=== PATIENT | female | born 1980 | race Caucasian/White ===

== ENCOUNTER 2017-03-21 20:58 | Inpatient (IN) | END 2017-03-25 15:20 | disposition home or self-care (01) | DRG 244 | DX: K57.32 Diverticulitis of large intestine without perforation or abscess without bleeding (principal); D69.6 Thrombocytopenia, unspecified; E44.0 Moderate protein-calorie malnutrition; E11.65 Type 2 diabetes mellitus with hyperglycemia; E83.42 Hypomagnesemia; E83.51 Hypocalcemia; K76.0 Fatty (change of) liver, not elsewhere classified; E66.9 Obesity, unspecified; E78.5 Hyperlipidemia, unspecified; J45.909 Unspecified asthma, uncomplicated; K21.9 Gastro-esophageal reflux disease without esophagitis; R53.1 Weakness; F41.9 Anxiety disorder, unspecified; Z68.29 Body mass index [BMI] 29.0-29.9, adult; D50.9 Iron deficiency anemia, unspecified; I95.1 Orthostatic hypotension; K57.90 Diverticulosis of intestine, part unspecified, without perforation or abscess without bleeding; Z79.84 Long term (current) use of oral hypoglycemic drugs ==

== ENCOUNTER 2017-05-25 23:40 | Emergency (ER) | payer MEDICAID ==
[~2017-05-25] VITALS: Ht 152.4 cm; Wt 72.6 kg
[~2017-05-25 23:40] MED LIST: ACET325T53 PO; CHOL10002 PO; ERGO500014 PO; FERR325T28 PO; GLIP10TA11 PO; LACT1CAP57 PO; LEVO500T2 PO; METF500T6 PO; METR500T4 PO
[2017-05-25] MEDS ORDERED: KETOROLAC TROMETHAMINE 30 MG INJ ONE (23:54)
--- NOTE | 2017-05-26 | NUR ---
[facility] BURRELL AT BEDSIDE FOR MSE.
[2017-05-26] MEDS ORDERED: PANTOPRAZOLE SODIUM 40 MG VIAL ONE (00:10)
--- NOTE | 2017-05-26 00:10 | NUR ---
PT ARRIVES TO ED W/ C/O ABD PAIN X3 DAYS. ALSO REPORTS NAUSEA AND DIARRHEA X5 DAYS.
[2017-05-26] MEDS ORDERED: ONDANSETRON 4 MG/2 ML VIAL IV ONE (00:15)
[2017-05-26] MEDS ORDERED: ONDANSETRON 4 MG/2 ML VIAL ONE (00:15)
[2017-05-26] MEDS ORDERED: PANTOPRAZOLE SODIUM 40 MG VIAL IV ONE (00:15)
[2017-05-26] MEDS ORDERED: KETOROLAC TROMETHAMINE 15 MG INJ IV ONE (00:15)
[2017-05-26] MEDS ORDERED: IV NORMAL SALINE 1000 ML BAG IV ONE (00:15)
--- NOTE | 2017-05-26 00:15 | NUR ---
[facility] AT PT BEDSIDE FOR BLOOD DRAW.
[2017-05-26 00:21] LABS: BASOPHILS % (AUTO) 0.3 % (0.0-2.0); EOSINOPHILS # (AUTO) 0.2 K/uL (0.0-0.7); EOSINOPHILS % (AUTO) 1.3 % (0.0-7.0); HEMATOCRIT 34.7 % (31.2-41.9); HEMOGLOBIN 11.5 g/dL (10.9-14.3); LYMPHOCYTES # (AUTO) 3.2 K/uL (20.0-40.0); LYMPHOCYTES % (AUTO) 26.9 % (20.5-51.5); MEAN CORPUSCULAR HEMOGLOBIN 26.4 uug (24.7-32.8); MEAN CORPUSCULAR HGB CONC 33 g/dL (32.3-35.6); MEAN CORPUSCULAR VOLUME 79.3 fL (75.5-95.3); MONOCYTES # (AUTO) 0.8 K/uL (2.0-10.0); MONOCYTES % (AUTO) 6.5 % (0.0-11.0); NEUTROPHILS # (AUTO) 7.6 K/uL (1.8-8.9); PLATELET COUNT (AUTO) 196 K/uL (179-408); RED BLOOD CELL COUNT(AUTO) 4.37 MIL/uL (3.63-4.92); WHITE BLOOD COUNT (AUTO) 11.7 K/uL (3.8-11.8)
[2017-05-26 00:45] LABS: BILIRUBIN,DIRECT 0.1 mg/dL (0.0-0.2); BILIRUBIN,TOTAL 0.2 mg/dL (0.2-1.0); CREATININE 0.9 mg/dL (0.6-1.3); POTASSIUM 3.6 mmol/L (3.5-5.1); TOTAL PROTEIN, SERUM 7.7 g/dL (6.4-8.2)
--- NOTE | 2017-05-26 00:52 | NUR ---
PT AMBULATED TO AND FROM BATHROOM. DENIES DIZZINESS OR SOB. NO DISTRESS NOTED.
--- NOTE | 2017-05-26 01:01 | NUR ---
PT TAKEN TO CT BY [employer]PERVIS[employer] VIA WHEELCHAIR. NO DISTRESS NOTED.
[2017-05-26 01:03] LABS: *BILIRUBIN,URIN NEGATIVE (NEGATIVE); *BLOOD, URINE NEGATIVE (NEGATIVE); *CLARITY,URINE CLEAR (CLEAR); *COLOR,URINE STRAW (YELLOW); *KETONES,URINE NEGATIVE (NEGATIVE); *PROTEIN,URINE NEGATIVE (NEGATIVE); *UROBILINOGEN,URINE 0.2 E.U./dl (NORMAL); LEUKOCYTE ESTERASE ,URINE NEGATIVE (NEGATIVE); NITRITE, URINE NEGATIVE (NEGATIVE); PH,URINE 6.5 (5.0-8.0); UGLUCOSE NEGATIVE (NEGATIVE)
[2017-05-26 01:09] LABS: BACTERIA,URINE NONE SEEN /HPF (NONE SEEN); RBC,URINE NONE SEEN /HPF (0-3); SQUAMOUS EPITHELIAL CELL,UR FEW /HPF (NONE SEEN); WBC,URINE NONE SEEN /HPF (0-3)
[2017-05-26] MEDS ORDERED: MORPHINE SULFATE 4 MG/1 ML DISP.SYRIN IV ONE (01:45)
[2017-05-26] MEDS ORDERED: MORPHINE SULFATE 4 MG/1 ML DISP.SYRIN ONE (01:45)
--- NOTE | 2017-05-26 02:38 | NUR ---
PT RESTING W/ EYES CLOSED. NO DISTRESS NOTED. FAMILY AT BEDSIDE.
[2017-05-26] MEDS ORDERED: LEVOFLOXACIN 750 MG TABLET ONE (02:59)
[2017-05-26] MEDS ORDERED: METRONIDAZOLE 500 MG TABLET ONE (02:59)
[2017-05-26] MEDS ORDERED: METRONIDAZOLE 500 MG TABLET PO ONE (03:00)
[2017-05-26] MEDS ORDERED: LEVOFLOXACIN 750 MG TABLET PO ONE (03:00)
--- NOTE | 2017-05-26 03:48 | NUR ---
Patient discharged to home in stable conditon. Written and verbal after care instructions given. Patient verbalizes understanding of instructions. IV removed, catheter intact. Pressure applied. No bleeding noted at site. Pt ambulated from ER w/ steady gait, accompanied by family. Pt took all belongings.
[2017-05-26 03:52] VITALS: BP 104/68
== END 2017-05-26 03:52 | disposition home or self-care (01) ==
LOC: ER 23:42
DX: K57.32 Diverticulitis of large intestine without perforation or abscess without bleeding (principal); E11.9 Type 2 diabetes mellitus without complications; K21.9 Gastro-esophageal reflux disease without esophagitis; Z79.84 Long term (current) use of oral hypoglycemic drugs; Z90.49 Acquired absence of other specified parts of digestive tract; Z79.2 Long term (current) use of antibiotics; Z79.899 Other long term (current) drug therapy
CPT/HCPCS: 36415; 83690; 84703; 85025; 93005; A4663; C9113; J2270; J2405; J7030

== ENCOUNTER 2017-08-21 22:26 | Emergency (ER) | payer MEDICAID ==
[~2017-08-21] VITALS: Ht 165.1 cm; Wt 72.6 kg
[2017-08-21] MEDS ORDERED: IV NORMAL SALINE 1000 ML BAG IV ONE (23:45)
[2017-08-21] MEDS ORDERED: ALBUTEROL SULFATE 2.5 MG/3 ML NEBU NEB ONE (23:45)
[2017-08-21] MEDS ORDERED: ALBUTEROL SULFATE 2.5 MG/3 ML NEBU ONE (23:53)
[2017-08-22] MEDS ORDERED: HYDROCODONE/APAP 5-325MG TABLET ONE (00:09)
[2017-08-22 00:10] LABS: BASOPHILS % (AUTO) 0.4 % (0.0-2.0); EOSINOPHILS # (AUTO) 0.4 K/uL (0.0-0.7); HEMATOCRIT 35.8 % (31.2-41.9); LYMPHOCYTES # (AUTO) 3.5 K/uL (20.0-40.0); LYMPHOCYTES % (AUTO) 28.9 % (20.5-51.5); MEAN CORPUSCULAR HEMOGLOBIN 26.7 uug (24.7-32.8); MEAN CORPUSCULAR HGB CONC 34 g/dL (32.3-35.6); MEAN CORPUSCULAR VOLUME 79.4 fL (75.5-95.3); MONOCYTES # (AUTO) 0.7 K/uL (2.0-10.0); MONOCYTES % (AUTO) 5.3 % (0.0-11.0); NEUTROPHILS # (AUTO) 7.6 K/uL (1.8-8.9); NEUTROPHILS % (AUTO) 62.4 % (38.5-71.5); PLATELET COUNT (AUTO) 171 K/uL (179-408); WHITE BLOOD COUNT (AUTO) 12.2 K/uL (3.8-11.8)
[2017-08-22] MEDS ORDERED: HYDROCODONE/APAP 5-325MG TABLET PO ONE (00:15)
[2017-08-22 00:45] LABS: CREATININE 1.1 mg/dL (0.6-1.3); POTASSIUM 3.8 mmol/L (3.5-5.1)
[2017-08-22 00:57] LABS: BILIRUBIN,DIRECT 0.1 mg/dL (0.0-0.2); BILIRUBIN,TOTAL 0.3 mg/dL (0.2-1.0)
[2017-08-22 03:39] VITALS: BP 95/77
== END 2017-08-22 03:40 | disposition home or self-care (01) ==
LOC: ER 22:28
DX: J20.9 Acute bronchitis, unspecified (principal); K21.9 Gastro-esophageal reflux disease without esophagitis; E11.9 Type 2 diabetes mellitus without complications; Z90.49 Acquired absence of other specified parts of digestive tract; Z79.2 Long term (current) use of antibiotics; Z79.84 Long term (current) use of oral hypoglycemic drugs; Z79.899 Other long term (current) drug therapy
CPT/HCPCS: 36415; 70030-TC; 84703; 85025; 85730; 93005; A4663; J7030

== ENCOUNTER 2020-10-13 14:26 | Emergency (ER) | payer MEDICAID ==
[~2020-10-13] VITALS: Ht 152.4 cm; Wt 77.1 kg
[~2020-10-13 14:26] MED LIST changes: +METF-440 PO; -METF500T6 PO; +METR-147 PO; -METR500T4 PO
--- NOTE | 2020-10-13 14:40 | NUR ---
Dr Agarwal at the bedside for MSE.
[2020-10-13] MEDS ORDERED: IV NORMAL SALINE 1000 ML BAG IV ONE (14:45)
[2020-10-13] MEDS ORDERED: MORPHINE SULFATE 2 MG/1 ML DISP.SYRIN IV ONE ×2 (14:45→16:00)
[2020-10-13] MEDS ORDERED: ONDANSETRON 4 MG/2 ML VIAL IV ONE (14:45)
[2020-10-13] MEDS ORDERED: INSU100I19 SQ (14:46)
[2020-10-13] MEDS ORDERED: SIMV-49 PO (14:46)
[2020-10-13] MEDS ORDERED: FENOFIBRATE PO (14:46)
[2020-10-13] MEDS ORDERED: INSU100C SQ (14:46)
[2020-10-13] MEDS ORDERED: MORPHINE SULFATE 4 MG/1 ML DISP.SYRIN ONE ×2 (14:58→16:02)
[2020-10-13] MEDS ORDERED: ONDANSETRON 4 MG/2 ML VIAL ONE (14:58)
[2020-10-13 15:00] LABS: HEMATOCRIT 30.7 % (31.2-41.9); MEAN CORPUSCULAR VOLUME 70.1 fL (75.5-95.3); PLATELET COUNT (AUTO) 223 K/uL (179-408)
[2020-10-13 15:01] LABS: *BILIRUBIN,URIN NEGATIVE (NEGATIVE); *BLOOD, URINE NEGATIVE (NEGATIVE); *CLARITY,URINE CLEAR (CLEAR); *COLOR,URINE LIGHT YELLOW (YELLOW); *KETONES,URINE NEGATIVE (NEGATIVE); *UROBILINOGEN,URINE 0.2 E.U./dl (NORMAL); LEUKOCYTE ESTERASE ,URINE NEGATIVE (NEGATIVE); NITRITE, URINE NEGATIVE (NEGATIVE); UGLUCOSE NEGATIVE (NEGATIVE)
[2020-10-13 15:02] LABS: CREATININE 0.9 mg/dL (0.6-1.3); POTASSIUM 3.5 mmol/L (3.5-5.1)
[2020-10-13 15:04] LABS: *URINE HCG, QUAL NEGATIVE (NEGATIVE)
[2020-10-13 15:08] LABS: BILIRUBIN,DIRECT 0.1 mg/dL (0.0-0.2); BILIRUBIN,TOTAL 0.2 mg/dL (0.2-1.0); TOTAL PROTEIN, SERUM 7.9 g/dL (6.4-8.2)
--- NOTE | 2020-10-13 15:22 | NUR ---
Patient is resting comfortably in bed with eyes closed, NAD noted.
--- NOTE | 2020-10-13 15:33 | NUR ---
Pt out of Er for CT scan.
--- NOTE | 2020-10-13 15:50 | NUR ---
Pt back from De. /S [employer] at the bedside.
[2020-10-13] MEDS ORDERED: HYDR-3980 PO (16:34)
[2020-10-13 16:45] VITALS: BP 110/59
--- NOTE | 2020-10-13 16:45 | NUR ---
IV removed. Catheter intact and site benign. Pressure and 4x4 gauze applied to site. No bleeding noted.
--- NOTE | 2020-10-13 16:46 | NUR ---
Patient discharged to home in stable condition. Written and verbal after care instructions given. Patient verbalizes understanding of instructions. Stressed follow up or return to ER for worsening s/s.
== END 2020-10-13 16:46 | disposition home or self-care (01) ==
LOC: ER 14:27
DX: R10.31 Right lower quadrant pain (principal); K57.30 Diverticulosis of large intestine without perforation or abscess without bleeding; K21.9 Gastro-esophageal reflux disease without esophagitis; J45.909 Unspecified asthma, uncomplicated; E78.5 Hyperlipidemia, unspecified; E11.9 Type 2 diabetes mellitus without complications; Z79.4 Long term (current) use of insulin; E55.9 Vitamin D deficiency, unspecified; E66.9 Obesity, unspecified; Z68.33 Body mass index [BMI] 33.0-33.9, adult
CPT/HCPCS: 36415; 74176; 76856; 80048; 80076; 81003; 83690; 84703; 85025; 96361; 96374; 96375; 96376; 99285; J2270 ×2; J2405; A4663; J7030

== ENCOUNTER 2020-10-22 15:25 | Emergency (ER) | payer MEDICAID ==
[~2020-10-22] VITALS: Ht 157.5 cm; Wt 77.1 kg
[~2020-10-22 15:25] MED LIST changes: -ACET325T53 PO; -CHOL10002 PO; -ERGO500014 PO; +FENOFIBRATE PO; -FERR325T28 PO; -GLIP10TA11 PO; +HYDR-3980 PO; +INSU100C SQ; +INSU100I19 SQ; -LACT1CAP57 PO; -LEVO500T2 PO; -METR-147 PO; +SIMV-49 PO
--- NOTE | 2020-10-22 15:43 | NUR ---
Dr Alexander at the bedside for MSE.
[2020-10-22] MEDS ORDERED: IBUPROFEN 600 MG TABLET PO ONE (16:00)
[2020-10-22] MEDS ORDERED: IBUPROFEN 600 MG TABLET ONE (16:07)
--- NOTE | 2020-10-22 16:22 | NUR ---
COVID swab collected and taken to LAB.
[2020-10-22] MEDS ORDERED: IBUP-1955 PO (17:05)
[2020-10-22 17:18] VITALS: BP 110/62
== END 2020-10-22 17:19 | disposition home or self-care (01) ==
LOC: ER 15:25
DX: J02.9 Acute pharyngitis, unspecified (principal); H92.02 Otalgia, left ear; Z20.822 Contact with and (suspected) exposure to COVID-19; E11.9 Type 2 diabetes mellitus without complications; Z79.4 Long term (current) use of insulin; E78.5 Hyperlipidemia, unspecified; E66.9 Obesity, unspecified; Z68.31 Body mass index [BMI] 31.0-31.9, adult; K21.9 Gastro-esophageal reflux disease without esophagitis; J45.909 Unspecified asthma, uncomplicated
CPT/HCPCS: 86403; 87070; A4663

== ENCOUNTER 2021-01-25 11:50 | Emergency (ER) | payer MEDICAID ==
[~2021-01-25] VITALS: Ht 157.5 cm; Wt 77.1 kg
[~2021-01-25 11:50] MED LIST changes: +IBUP-1955 PO
[2021-01-25] MEDS ORDERED: IBUPROFEN 800 MG TABLET PO ONE (12:15)
[2021-01-25] MEDS ORDERED: IBUPROFEN 800 MG TABLET ONE (12:27)
[2021-01-25 13:14] LABS: MEAN CORPUSCULAR HEMOGLOBIN 22.3 uug (24.7-32.8); MEAN CORPUSCULAR VOLUME 71.3 fL (75.5-95.3); PLATELET COUNT (AUTO) 230 K/uL (179-408)
[2021-01-25 13:16] LABS: CREATININE 1.1 mg/dL (0.6-1.3); POTASSIUM 4.5 mmol/L (3.5-5.1)
[2021-01-25 13:29] LABS: BILIRUBIN,DIRECT 0.1 mg/dL (0.0-0.2); BILIRUBIN,TOTAL 0.2 mg/dL (0.2-1.0); TOTAL PROTEIN, SERUM 7.2 g/dL (6.4-8.2)
[2021-01-25] MEDS ORDERED: HYDR-3972 PO (13:47)
[2021-01-25] MEDS ORDERED: NAPR500T6 PO (13:47)
[2021-01-25 13:56] LABS: EOSINOPHILS % (MANUAL) 2 % (0-8); LYMPHOCYTES % (MANUAL) 41 % (20-40); MONOCYTES % (MANUAL) 3 % (2-10); NEUTROPHILS % (MANUAL) 54 % (42-75)
== END 2021-01-25 13:54 | disposition home or self-care (01) ==
LOC: ER 11:50
DX: S46.001A Unspecified injury of muscle(s) and tendon(s) of the rotator cuff of right shoulder, initial encounter (principal); X58.XXXA Exposure to other specified factors, initial encounter; Y92.89 Other specified places as the place of occurrence of the external cause; E11.9 Type 2 diabetes mellitus without complications; E66.9 Obesity, unspecified; Z68.31 Body mass index [BMI] 31.0-31.9, adult; K21.9 Gastro-esophageal reflux disease without esophagitis; E78.5 Hyperlipidemia, unspecified; Z79.4 Long term (current) use of insulin; R94.31 Abnormal electrocardiogram [ECG] [EKG]; D64.9 Anemia, unspecified; J45.909 Unspecified asthma, uncomplicated; M54.12 Radiculopathy, cervical region
CPT/HCPCS: 36415; 70030-TC; 71045; 72125; 73030; 85025; 93005; A4663